=== PATIENT | female | born 1990 | race Caucasian/White ===

== ENCOUNTER 2018-09-25 15:10 | Emergency (ER) | payer OTHER ==
[~2018-09-25] VITALS: Ht 165.1 cm; Wt 56.7 kg
[2018-09-25] MEDS ORDERED: PRENATABS FA T1 EACH (15:29)
== END 2018-09-25 19:08 | disposition home or self-care (01) ==
LOC: ER 15:10
DX: O26.851 Spotting complicating pregnancy, first trimester (principal)

== ENCOUNTER → 2018-12-28 | Outpatient (CLI) | payer OTHER ==
[~2018-12-28] MED LIST: PRENATABS FA T1 EACH
== END | disposition home or self-care (01) ==
LOC: PRENATAL 08:29
DX: O35.3XX0 Maternal care for (suspected) damage to fetus from viral disease in mother, not applicable or unspecified (principal); O26.842 Uterine size-date discrepancy, second trimester; O09.522 Supervision of elderly multigravida, second trimester; O24.312 Unspecified pre-existing diabetes mellitus in pregnancy, second trimester

== ENCOUNTER 2019-02-20 13:37 | Emergency (ER) | payer OTHER ==
[~2019-02-20] VITALS: Ht 165.1 cm; Wt 62.6 kg
== END 2019-02-20 18:56 | disposition home or self-care (01) ==
LOC: ER 13:37
DX: O99.012 Anemia complicating pregnancy, second trimester (principal); D64.89 Other specified anemias

== ENCOUNTER → 2019-03-31 | Outpatient (CLI) | payer OTHER | END | disposition home or self-care (01) | LOC: PRENATAL 14:00 | DX: O26.843 Uterine size-date discrepancy, third trimester (principal); O24.419 Gestational diabetes mellitus in pregnancy, unspecified control; O35.0XX0 Maternal care for (suspected) central nervous system malformation in fetus, not applicable or unspecified ==

== ENCOUNTER 2019-04-28 14:30 | Inpatient (IN) | payer OTHER ==
[~2019-04-28] VITALS: Ht 165.1 cm; Wt 67.1 kg
== END 2019-05-04 13:55 | disposition home or self-care (01) | DRG 787 ==
LOC: LDR 04-30 17:35 → SURG-SUITE 04-30 17:35 → LDR 04-30 18:35 → SURG-SUITE 05-01 19:45 → OB/GYN 05-22 14:30
PROVIDERS: ADMIT Obstetrics & Gynecology
PROC: 10D00Z1 Extraction of Products of Conception, Low, Open Approach (ICD-10-PCS; principal; 2019-04-30)
PROC: 4A1HXCZ Monitoring of Products of Conception, Cardiac Rate, External Approach (ICD-10-PCS; 2019-04-30)
PROC: 3E033VJ Introduction of Other Hormone into Peripheral Vein, Percutaneous Approach (ICD-10-PCS; 2019-04-30)
DX: O61.0 Failed medical induction of labor (principal); O41.03X1 Oligohydramnios, third trimester, fetus 1; Z3A.37 37 weeks gestation of pregnancy; Z37.0 Single live birth; Z22.330 Carrier of Group B streptococcus

== ENCOUNTER → 2019-04-28 | Outpatient (CLI) | payer OTHER | END | disposition home or self-care (01) | LOC: PRENATAL 13:00 | DX: O26.843 Uterine size-date discrepancy, third trimester (principal); O41.00X1 Oligohydramnios, unspecified trimester, fetus 1 ==

== ENCOUNTER 2019-05-12 17:36 | Emergency (ER) | payer OTHER ==
[~2019-05-12] VITALS: Ht 165.1 cm; Wt 61.2 kg
== END 2019-05-12 20:25 | disposition home or self-care (01) ==
LOC: ER 17:36
DX: N39.0 Urinary tract infection, site not specified (principal); R50.9 Fever, unspecified